=== PATIENT | male | born 1965 | race Caucasian/White ===

== ENCOUNTER 2020-03-04 07:04 | Emergency (ER) | payer MEDICAID ==
[~2020-03-04] VITALS: Ht 182.9 cm; Wt 109.0 kg
[2020-03-04 07:05] VITALS: BP 148/102
--- NOTE | 2020-03-04 07:28 | PHYS DOC ---
Past Medical History Past Medical History: Hypertension Past Surgical History: Other Additional Past Surgical Histo: back Smoking Status: Current Every Day Smoker Alcohol Use: None General Adult EDM: Chief Complaint: FOREIGNBODY EAR HPI: HPI: Patient is a 54 year old male who presented to the ER today for evaluation left ear pain. He felt like something is moving inside his left ear. Patient woke up with it. Patient denied any hearing loss. Review of Systems: Review of Systems: Constitutional: Denies fever or chills. [] Eyes: Denies change in visual acuity. [] HENT: Denies nasal congestion or sore throat. [] Respiratory: Denies cough or shortness of breath. [] Cardiovascular: Denies chest pain or edema. [] GI: Denies abdominal pain, nausea, vomiting, bloody stools or diarrhea. [] : Denies dysuria. [] Musculoskeletal: Denies back pain or joint pain. [] Integument: Denies rash. [] Neurologic: Denies headache, focal weakness or sensory changes. [] Endocrine: Denies polyuria or polydipsia. [] Lymphatic: Denies swollen glands. [] Psychiatric: Denies depression or anxiety. [] Heart Score: Risk Factors: Risk Factors: DM, Current or recent (<one month) smoker, HTN, HLP, family history of CAD, obesity. Risk Scores: Score 0 - 3: 2.5% MACE over next 6 weeks - Discharge Home Score 4 - 6: 20.3% MACE over next 6 weeks - Admit for Clinical Observation Score 7 - 10: 72.7% MACE over next 6 weeks - Early Invasive Strategies Allergies: Allergies: Allergies Coded Allergies Type Severity Reaction Last Updated Verified No Known Drug Allergies 09/08/14 No Physical Exam: PE: Constitutional: Well developed, well nourished, no acute distress, non-toxic appearance. [] HENT: Normocephalic, atraumatic, There is an insect appeared like a cockroach inside left external ear cannel, oropharynx moist, no oral exudates, nose normal. [] Eyes: PERRLA, EOMI, conjunctiva normal, no discharge. [] Neck: Normal range of motion, no tenderness, supple, no stridor. [] Neurologic: Alert and oriented X 3, normal motor function, normal sensory function, no focal deficits noted. [] Psychologic: Affect normal, judgement normal, mood normal. [] Current Patient Data: Vital Signs: Vital Signs Date Time Temp Pulse Resp B/P (MAP) Pulse Ox O2 Delivery O2 Flow Rate FiO2 03/04/20 07:05 97.1 95 18 148/102 (117) 99 Room Air 97.1 EKG: EKG: [] Radiology/Procedures: Radiology/Procedures: Indication: Foreign body in the left ear canal. Procedure: During otoscopic evaluation a foreign body was visualized in the left ear which appeared to be an insect. Viscous lidocaine was instilled into left external ear cannal for 15 minutes. The patient's head was positioned appropriately and the foreign body was partially with an alligator forcep. The body of the insect was removed. The head and the wing were still deep inside. Patient said he did not want the rest removed due to pain. Complications: There was some mild bleeding from skin abrasion inside left external ear cannal. Course & Med Decision Making: Course & Med Decision Making Pertinent Labs and Imaging studies reviewed. (See chart for details) [] Dragon Disclaimer: Dragon Disclaimer: This electronic medical record was generated, in whole or in part, using a voice recognition dictation system. Departure Departure Impression: Primary Impression: Ear foreign body Disposition: 01 DC HOME SELF CARE/HOMELESS Condition: STABLE Referrals: NO PCP (PCP) KINZA BOONE MD Please follow up with this ENT doctor on Saturday for reevaluation. Patient Instructions: Ear Foreign Body BIENVENIDO CURRAN DO Mar 04, 2020 07:28
[2020-03-04] MEDS ORDERED: LIDOCAINE 2% VISCOUS 15 ML SOLUTION. SWSW ONE (07:45)
== END 2020-03-04 08:15 | disposition home or self-care (01) ==
LOC: ER 07:04
DX: T16.2XXA Foreign body in left ear, initial encounter (principal); I10 Essential (primary) hypertension; F17.200 Nicotine dependence, unspecified, uncomplicated; X58.XXXA Exposure to other specified factors, initial encounter; Y93.89 Activity, other specified; Y92.89 Other specified places as the place of occurrence of the external cause; Y99.8 Other external cause status
CPT/HCPCS: 69200; 99284